=== PATIENT | male | born 1965 | race Caucasian/White ===

== ENCOUNTER 2018-09-03 14:40 | Emergency (ER) | payer BC, SELFPAY ==
[2018-09-03] VITALS (13 sets, daily range): BP systolic 137–154; BP diastolic 82–89; PULSE 80–100; RESP 16–25; TEMP 36.6–37.3; O2SAT 96–100
--- NOTE | 2018-09-03 14:56 | W.ED.GENAD ---
Discharge Plan Disposition Patient Disposition: HOME Condition: Stable Discharge Details Chief Complaint: Headache Clinical Impression: Headache Primary Care Provider: None,None ED Provider: Zaire Hernandez Home Meds and New Rx's Prescriptions: New ondansetron 4 mg tablet,disintegrating 4 mg PO QID PRN (Reason: nausea and vomiting) Qty: 30 RF: 0 No Action methylprednisolone 4 MG tablets,dose pack 4 mg PO DIRECTED Qty: 1 RF: 0 albuterol sulfate 8.5 GM HFA aerosol inhaler 8.5 gm Inhalation Q4H PRN PRNQty: 1 RF: 0 Discharge Instructions Instructions: General Headache (ED) Additional Instructions: follow up with your primary care provider within a week if you have pain you can take 1000mg tylenol and 600mg ibuprofen every 6 hours for pain as needed if you have severe worsening of pain, high fevers or persistent vomit return to the emergency department for reevaluation Medical Decision Making 53 yo male with hx of sarcoidosis comes in with chills that started last night and slowly worsening right sided headache along with n/v since then. Denies high fevers that he has checked, trauma or rashes. No new meds per pt or new foods. HAs no abdominal pain nor tenderness on exam. HAs no meningismus on exam and no focal neuro deficits. Suspect viral illness with resulting mild dehydration and subsequent headache, but will obtain ct to eval for possible sdh and also eval for influenza and monitor. Pain started slowly so doubt sah at this time pt remains stable, head ct negative and labs unremarkable. Pt states pain is gone and is tolerating PO, still no menignismus. I recommended LP to eval for possible ticket maker infectin and less likely sah but he declines at this time, has capacity to make his own decisions. My concern for these processes is low but advised I can't evaluate for them without the lp and he is declining at this time. He understands risks including /disability. He will f/u with his pcp as scheduled tomorrow and return precautions given Differential Diagnosis influenza, migraine, sah, ticket maker infection Imaging Data Radiologic Study: Attestation: I personally reviewed and interpreted this imaging study as follows: Imaging: CT Scan Radiologist's impression: no acute findings Lab Data Lab results reviewed: Yes I reviewed the patient's lab results. HPI General Mode of arrival: ambulatory. Date/Time Provider Initiated Documentation: 09/03/18 14:44. Limitations to Documentation: no limitations. Information obtained by: patient. History of Present Illness 53 year old M presents to the emergency department with the chief complaint of chills, described as moderate, Patient started experiencing this day(s) (1) and it has been constant. No relieving factors improve symptom(s), No exacerbating factors reported . Patient notes headaches. Patient did receive the following treatments prior to arrival, NSAID (3am) Related Data Home Medications Medication Instructions Recorded Confirmed albuterol sulfate 8.5 gm INHALATION Q4H PRN PRN #1 05/04/14 09/03/18 [email or web address] methylprednisolone 4 mg PO DIRECTED #1 unit 05/04/14 09/03/18 ondansetron 4 mg PO QID PRN #30 tab 09/03/18 Previous Rx's Medication Instructions Recorded albuterol sulfate 8.5 gm INHALATION Q4H PRN PRN #1 05/04/14 [email or web address] methylprednisolone 4 mg PO DIRECTED #1 unit 05/04/14 ondansetron 4 mg PO QID PRN #30 tab 09/03/18 Allergies Allergy/AdvReac Type Severity Reaction Status Date / Time pain medicine Allergy Mild Uncoded 09/03/18 14:52 General Stated Complaint: Headache KIYA: 3 Review of Systems Review of Systems All systems reviewed & are unremarkable except as noted in HPI and below Constitutional Denies fever(s) and Denies weakness ENT Denies change in voice Cardiovascular Denies chest pain and Denies dyspnea Respiratory Denies cough and Denies dyspnea Gastrointestinal Denies abdominal pain Genitourinary Denies dysuria Musculoskeletal Denies joint swelling Integumentary/Breasts Denies rash Neurologic Denies weakness [facility] Social History Smoking/Tobacco Use Status: Never Alcohol Intake: never Drug use: Never Do you feel safe at home: Yes Do you feel safe in your relationship?: Yes Exam Const General: no acute distress Orientation: alert HENMT Head: normal to inspection Ears: external ears normal General nose exam: external nose normal Mouth: moist mucous membranes Eyes General: appearance normal, both eyes and all related structures Neck Neck: normal visual inspection Resp Effort & Inspection: normal respiratory effort and able to speak in complete sentences Cardio Rate: regular rate Skin General skin exam: no rashes or lesions noted Neuro General: alert and oriented x3 Extrem General: normal to inspection Psych Mental Status: mental status grossly normal Course Vital Signs Temperature 37.3 C 09/03/18 14:45 Pulse 100 H 09/03/18 14:45 Respiratory Rate 16 09/03/18 14:45 Blood Pressure 143/82 H 09/03/18 14:45 Pulse Oximetry 98 09/03/18 14:45 Temperature 37.3 C 09/03/18 14:45 Temperature Source Skin 09/03/18 14:45 Pulse 100 H 09/03/18 14:45 Respiratory Rate 16 09/03/18 14:45 Respiratory Effort Non-Labored 09/03/18 14:50 Blood Pressure 143/82 H 09/03/18 14:45 Pulse Oximetry 98 09/03/18 14:45 Oxygen Delivery Method Room Air 09/03/18 14:45 Oxygen Flow Rate 0 09/03/18 14:45 Pain Level 8 09/03/18 14:45
--- NOTE | 2018-09-03 15:00 | ED.GENADUL_ITS ---
Discharge Plan Disposition Patient Disposition: HOME Condition: Stable Discharge Details Chief Complaint: Headache Clinical Impression: Headache Primary Care Provider: None,None ED Provider: Zaire Hernandez Home Meds and New Rx's Prescriptions: New ondansetron 4 mg tablet,disintegrating 4 mg PO QID PRN (Reason: nausea and vomiting) Qty: 30 RF: 0 No Action methylprednisolone 4 MG tablets,dose pack 4 mg PO DIRECTED Qty: 1 RF: 0 albuterol sulfate 8.5 GM HFA aerosol inhaler 8.5 gm Inhalation Q4H PRN PRNQty: 1 RF: 0 Discharge Instructions Instructions: General Headache (ED) Additional Instructions: follow up with your primary care provider within a week if you have pain you can take 1000mg tylenol and 600mg ibuprofen every 6 hours for pain as needed if you have severe worsening of pain, high fevers or persistent vomit return to the emergency department for reevaluation Medical Decision Making 53 yo male with hx of sarcoidosis comes in with chills that started last night and slowly worsening right sided headache along with n/v since then. Denies high fevers that he has checked, trauma or rashes. No new meds per pt or new foods. HAs no abdominal pain nor tenderness on exam. HAs no meningismus on exam and no focal neuro deficits. Suspect viral illness with resulting mild dehydration and subsequent headache, but will obtain ct to eval for possible sdh and also eval for influenza and monitor. Pain started slowly so doubt sah at this time pt remains stable, head ct negative and labs unremarkable. Pt states pain is gone and is tolerating PO, still no menignismus. I recommended LP to eval for possible state historical society director infectin and less likely sah but he declines at this time, has capacity to make his own decisions. My concern for these processes is low but advised I can't evaluate for them without the lp and he is declining at this time. He understands risks including /disability. He will f/u with his pcp as scheduled tomorrow and return precautions given Differential Diagnosis influenza, migraine, sah, state historical society director infection Imaging Data Radiologic Study: Attestation: I personally reviewed and interpreted this imaging study as follows: Imaging: CT Scan Radiologist's impression: no acute findings Lab Data Lab results reviewed: Yes I reviewed the patient's lab results. HPI General Mode of arrival: ambulatory . Date/Time Provider Initiated Documentation: 09/03/18 14:44 . Limitations to Documentation: no limitations . Information obtained by: patient . History of Present Illness 53 year old M presents to the emergency department with the chief complaint of chills, described as moderate, Patient started experiencing this day(s) (1) and it has been constant. No relieving factors improve symptom(s), No exacerbating factors reported . Patient notes headaches. Patient did receive the following treatments prior to arrival, NSAID (3am) Related Data Home Medications Medication Instructions Recorded Confirmed albuterol sulfate 8.5 gm INHALATION Q4H PRN PRN #1 05/04/14 09/03/18 [email or web address] methylprednisolone 4 mg PO DIRECTED #1 unit 05/04/14 09/03/18 ondansetron 4 mg PO QID PRN #30 tab 09/03/18 Previous Rx's Medication Instructions Recorded albuterol sulfate 8.5 gm INHALATION Q4H PRN PRN #1 05/04/14 [email or web address] methylprednisolone 4 mg PO DIRECTED #1 unit 05/04/14 ondansetron 4 mg PO QID PRN #30 tab 09/03/18 Allergies Allergy/AdvReac Type Severity Reaction Status Date / Time pain medicine Allergy Mild Uncoded 09/03/18 14:52 General Stated Complaint: Headache KIYA: 3 Review of Systems Review of Systems All systems reviewed & are unremarkable except as noted in HPI and below Constitutional Denies fever(s) and Denies weakness ENT Denies change in voice Cardiovascular Denies chest pain and Denies dyspnea Respiratory Denies cough and Denies dyspnea Gastrointestinal Denies abdominal pain Genitourinary Denies dysuria Musculoskeletal Denies joint swelling Integumentary/Breasts Denies rash Neurologic Denies weakness [facility] Social History Smoking/Tobacco Use Status: Never Alcohol Intake: never Drug use: Never Do you feel safe at home: Yes Do you feel safe in your relationship?: Yes Exam Const General: no acute distress Orientation: alert HENMT Head: normal to inspection Ears: external ears normal General nose exam: external nose normal Mouth: moist mucous membranes Eyes General: appearance normal, both eyes and all related structures Neck Neck: normal visual inspection Resp Effort & Inspection: normal respiratory effort and able to speak in complete sentences Cardio Rate: regular rate Skin General skin exam: no rashes or lesions noted Neuro General: alert and oriented x3 Extrem General: normal to inspection Psych Mental Status: mental status grossly normal Course Vital Signs Temperature 37.3 C 09/03/18 14:45 Pulse 100 H 09/03/18 14:45 Respiratory Rate 16 09/03/18 14:45 Blood Pressure 143/82 H 09/03/18 14:45 Pulse Oximetry 98 09/03/18 14:45 Temperature 37.3 C 09/03/18 14:45 Temperature Source Skin 09/03/18 14:45 Pulse 100 H 09/03/18 14:45 Respiratory Rate 16 09/03/18 14:45 Respiratory Effort Non-Labored 09/03/18 14:50 Blood Pressure 143/82 H 09/03/18 14:45 Pulse Oximetry 98 09/03/18 14:45 Oxygen Delivery Method Room Air 09/03/18 14:45 Oxygen Flow Rate 0 09/03/18 14:45 Pain Level 8 09/03/18 14:45
[2018-09-03] MEDS: Prochlorperazine 10 MG/2 ML VIAL IVP (15:14)
[2018-09-03] MEDS: Normal Saline 1,000 ML 1000 ML IV (15:14)
[2018-09-03 15:19] LABS: Abs Immature Grans 0.02 k/cumm (0.0-0.09); Absolute Basophil Count 0.01 k/cumm (0.0-0.2); Absolute Lymphocyte Count 0.47 k/cumm (1.2-3.4); Absolute Monocyte Count 0.43 k/cumm (0.11-0.7); Absolute Neutrophil Count 6.69 k/cumm (1.2-6.7); Basophils % 0.1; HCT 39.5 % (40.0-50.0); HGB 13.5 g/dL (13.5-17.5); Immature Grans % 0.3; Lymphocytes % 6.2; Mean Corp. HGB Concentration 34.2 g/dL (32.0-36.0); Mean Corpuscular Hemoglobin 32.1 pg (27.0-33.0); Mean Corpuscular Volume 93.8 fL (80-95); Mean Platelet Volume 10.8 fL (8.0-11.0); Monocytes % 5.6; Neutrophils % 87.8; Platelet Count 113 x1000/uL (130-400); RBC 4.21 m/cumm (4.50-6.00); RBC Distribution Width 12.7 % (11.8-14.1); White Blood Cell Count 7.62 k/cumm (4.4-10.8)
[2018-09-03 15:34] LABS: PTT Activated 24.1 sec (21.0-31.4); Prothrombin Time 10.2 sec (9.3-11.0)
[2018-09-03 15:38] LABS: ALT 33 U/L (12-78); AST 25 U/L (15-37); Albumin 3.7 g/dL (3.4-5.0); Alkaline Phosphatase 86 U/L (46-116); Anion Gap 7.7 mmol/L (3-11); BUN 12 mg/dL (7-18); Bilirubin, Total 0.9 mg/dL (0.2-1.0); CO2 27.3 mmol/L (21.0-32.0); CREATININE 0.82 mg/dL (0.70-1.30); Calcium 8.5 mg/dL (8.5-10.1); Chloride 99 mmol/L (98-107); Glucose 119 mg/dL (70-100); Potassium 3.7 mmol/L (3.5-5.1); Sodium 134 mmol/L (136-145)
--- NOTE | 2018-09-03 15:40 | DI.CT_ITS ---
SYMPTOMS/DIAGNOSIS: RIGHT-SIDED HEADACHES CT BRAIN: Noncontrast examination was performed. Comparison MRI is 01/25/13. There is a normal tejeda-white matter differentiation. The ventricles are intact. The basilar cisterns are patent. No acute intracranial hemorrhage, midline shift or mass effect is identified. No fluid levels are seen in the visualized paranasal sinuses. The mastoid air cells are well pneumatized. The calvarium is intact. IMPRESSION: No acute intracranial process. The findings were discussed with the Emergency Department on the date of the examination.
[2018-09-03] MEDS: Acetaminophen 500 MG TAB 1000 MG PO (15:50)
[2018-09-03] MEDS: Ketorolac 30 MG/ML VIAL (15:58)
== END 2018-09-03 16:58 | disposition home or self-care (01) ==
LOC: ER 17:24
PROVIDERS: Emergency Provider Emergency Medicine
DX: R51 Headache (principal); R11.2 Nausea with vomiting, unspecified
CPT/HCPCS: 36415; 80053; 87449; 96361; 96374; 96375; 99284; 70450; 85025; 85610; 85730; J0780; J1885

== ENCOUNTER 2018-12-04 04:33 | Emergency (ER) | payer BC, SELFPAY ==
[2018-12-04 04:36] VITALS: BP 134/87; PULSE 61; RESP 16; TEMP 36.1; O2SAT 99
--- NOTE | 2018-12-04 04:51 | ED.GENADUL_ITS ---
Discharge Plan Disposition Patient Disposition: HOME Condition: Good Discharge Details Chief Complaint: Vascular Clinical Impression: Superficial bruising of lower leg Primary Care Provider: None,None ED Provider: Hilton Gale Home Meds and New Rx's Prescriptions: No Action methylprednisolone 4 MG tablets,dose pack 4 mg PO DIRECTED Qty: 1 RF: 0 albuterol sulfate 8.5 GM HFA aerosol inhaler 8.5 gm Inhalation Q4H PRN PRNQty: 1 RF: 0 ondansetron 4 mg tablet,disintegrating 4 mg PO QID PRN (Reason: nausea and vomiting) Qty: 30 RF: 0 Discharge Instructions Instructions: Contusion in Adults (ED) Additional Instructions: Please take 10 mg of your home Eliquis soon as you get home. Please return this afternoon for your ultrasound. You will be contacted for an appointment time. After your appointment please come back to the ER for reassessment. This may just be swelling from your daily work, and if there is no evidence of blood clots, you will not need to continue the Eliquis. It should get better with time on its own peer please continue to use your compression stockings. If you notice any worsening of your symptoms, or any new symptoms such as vomiting, diarrhea, fever, chills, shortness of breath, chest pain, numbness, weakness, or fainting , please return immediately to the emergency department for reevaluation. Please follow up with your primary care provider as soon as possible for reassessment and reevaluation. As always, it was a pleasure participating in your medical care today. Medical Decision Making This is a pleasant 53-year-old male with a past medical history of blood clot in the past for which he takes Eliquis, but no longer currently does. He presents today for evaluation of small amount of bruising over the right medial ankle, and the right medial calf. It is been present for the last 1 to 2 days. He did fall and hit his leg 2 to 3 months ago, but no recent trauma. He presents today out of concern for potential clot. He denies any other systemic symptoms of chest pain shortness of breath and calf tenderness. No significant swelling of the lower extremity. Exam demonstrates no signs of coolness, pallor, or evidence of vascular ischemia. Signs and symptoms appear consistent with mild bruising for unknown reason, no other bruising on the rest of the body, no historical suggestion of thrombocytopenia. I feel the likelihood of a clot is low, however with the patient's history I do feel that further evaluation is reasonable. Fortunately no ultrasound is available currently at 5 AM, so we will schedule outpatient ultrasonography for the patient. He works from 7 AM until 3 PM. Is requesting that the appointment be after this time. He does have home Eliquis from his previous blood clot, and is requesting to take his home medications instead of medications here. Did discuss with him the need to take 10 mg at this time as soon as he returns. Patient will be contacted for outpatient ultrasound. If ultrasound is negative I suspect his bruising is most likely secondary to trauma and work, and requires no other significant acute intervention otherwise. We discussed red flags which to return as well as the plan. I have extensively reviewed the treatment plan and discharge instructions with the patient. I have addressed all patient concerns at this time. The patient was made aware of what symptoms to monitor for that would warrant a return to the emergency department. Discussed the plan with the patient, they demonstrate verbal understanding and agreement with our assessment and plan at this time. Contact numbers: Cell phone number [phone] Workplace/shot number [phone] [facility] General Date/Time Provider Initiated Documentation: 12/04/18 04:39 . HPI Narrative: This is a 53-year-old male with a past medical history of sarcoidosis currently on prednisone as well as a blood clot in the past secondary to fall, and trauma for which he used to take Eliquis. He presents today for evaluation of bruising. Patient states that in July he fell and hit his leg, he had some swelling and bruising at that time but this resolved on its own with compression stockings. However over the last 2 days he has noticed some mild bruising on the medial aspect of the ankle and proximal calf. He denies any recent trauma, or pain. He denies any chest pain or shortness of breath. He denies any pain with ambulation. He denies any recent trauma. He denies any other complaints at this time. He does use home compression stockings. He denies any numbness tingling or weakness. No other complaints at this time. He states that he is coming to get checked out to be safe. Related Data Home Medications Medication Instructions Recorded Confirmed albuterol sulfate 8.5 gm INHALATION Q4H PRN PRN #1 05/04/14 09/03/18 [email or web address] methylprednisolone 4 mg PO DIRECTED #1 unit 05/04/14 09/03/18 ondansetron 4 mg PO QID PRN #30 tab 09/03/18 Previous Rx's Medication Instructions Recorded albuterol sulfate 8.5 gm INHALATION Q4H PRN PRN #1 05/04/14 [email or web address] methylprednisolone 4 mg PO DIRECTED #1 unit 05/04/14 ondansetron 4 mg PO QID PRN #30 tab 09/03/18 Allergies Allergy/AdvReac Type Severity Reaction Status Date / Time pain medicine Allergy Mild Uncoded 12/04/18 04:36 General Stated Complaint: Vascular KIYA: 4 Review of Systems Review of Systems All systems reviewed & are unremarkable except as noted in HPI and below PFSH Social History Smoking/Tobacco Use Status: Never Alcohol Intake: never Drug use: Never Do you feel safe at home: Yes Do you feel safe in your relationship?: Yes Exam Narrative Exam Narrative: 1.Const: Well-nourished, Well-developed, appearing stated age 2.Eyes: PERRL, no conjunctival injection, and symmetrical lids. 3.ENT: Atraumatic external nose and ears. Moist MM. Neck: Symmetric, trachea midline, No thyromegaly. 4.CVS: +S1/S2, No murmurs or gallops. Peripheral pulses 2+ and equal in all extremities. Brisk capillary refill in all extremities. 5.RESP: Unlabored respiratory effort. Clear to auscultation bilaterally. No wheezes rales or rhonchi 6.GI: Soft, Nontender/Nondistended, No hepatosplenomegaly. No guarding or rebound. 7.MSK: Normocephalic/Atraumatic, Extremities w/o deformity or ttp No cyanosis or clubbing, Normal movement of all extremities. Patient has +5 out of 5 strength in the lower extremities in dorsiflexion and plantarflexion, knee flexion and extension, hip flexion and extension. There is +2 over 2 dorsalis pedis pulses bilaterally. There is normal sensation to the skin with light touch at the foot knee and hip. Minimal petechial bruising over the medial aspect of the ankle on the right, as well as the medial aspect of the proximal calf. This is very minimal in nature. No significant calf tenderness, negative Homans sign. Dorsalis pedis and posterior tibial pulse +2 bilaterally. Brisk capillary refill. Normal sensation throughout both hands feet and legs. 8.Skin: Warm, Dry. Minimal petechial bruising over the right medial ankle and the right medial calf. No evidence of palpable purpura, bruising anywhere else, or other significant abnormality. 9.Neuro: client representative II-XII grossly intact. Sensation grossly intact, no focal neurologic deficits. 10.Psych: (AAO) x3. Appropriate mood and affect Course Vital Signs Temperature 36.1 C L 12/04/18 04:36 Pulse 61 12/04/18 04:36 Respiratory Rate 16 12/04/18 04:36 Blood Pressure 134/87 12/04/18 04:36 Pulse Oximetry 99 12/04/18 04:36 Temperature 36.1 C L 12/04/18 04:36 Temperature Source Temporal Artery Scan 12/04/18 04:36 Pulse 61 12/04/18 04:36 Respiratory Rate 16 12/04/18 04:36 Respiratory Effort 12/04/18 04:36 Blood Pressure 134/87 12/04/18 04:36 Pulse Oximetry 99 12/04/18 04:36 Oxygen Delivery Method Room Air 12/04/18 04:36 Oxygen Flow Rate 0 12/04/18 04:36 Pain Level 0 12/04/18 04:36
== END 2018-12-04 04:59 | disposition home or self-care (01) ==
PROVIDERS: Emergency Provider Student in an Organized Health Care Education/Training Program
DX: S90.01XA Contusion of right ankle, initial encounter (principal); X58.XXXA Exposure to other specified factors, initial encounter; Z79.01 Long term (current) use of anticoagulants
CPT/HCPCS: 99283

== ENCOUNTER 2018-12-04 07:34 | Outpatient (CLI) | payer BC, SELFPAY ==
--- NOTE | 2018-12-04 15:32 | DI.US_ITS ---
SYMPTOMS/DIAGNOSIS: SWELLING, H/O DVT, SUPERFICIAL BRUISE, ? DVT DUPLEX VENOUS ULTRASOUND, RIGHT LOWER EXTREMITY: Duplex evaluation of the deep venous system was performed according to the usual protocol. The deep veins are freely compressible throughout to the level of the popliteal veins. There is normal Doppler flow visible throughout and there is excellent flow augmentation with manual calf compression. CONCLUSION: No evidence of deep venous thrombosis.
== END 2018-12-04 07:54 ==
PROVIDERS: Visit Provider Student in an Organized Health Care Education/Training Program
DX: R22.41 Localized swelling, mass and lump, right lower limb (principal); S80.11XA Contusion of right lower leg, initial encounter
CPT/HCPCS: 93971

== ENCOUNTER 2018-12-04 15:35 | Emergency (ER) | payer BC, SELFPAY ==
[2018-12-04 15:38] VITALS: BP 128/88; PULSE 68; RESP 16; TEMP 36.8; O2SAT 97
--- NOTE | 2018-12-04 15:54 | W.ED.GENAD ---
Discharge Plan Disposition Patient Disposition: HOME Condition: Good Discharge Details Chief Complaint: Recheck Clinical Impression: Bruising Primary Care Provider: Stacia,Local ED Provider: Chelsy Ramos Home Meds and New Rx's Prescriptions: Continued methylprednisolone 4 MG tablets,dose pack 4 mg PO DIRECTED Qty: 1 RF: 0 albuterol sulfate 8.5 GM HFA aerosol inhaler 8.5 gm Inhalation Q4H PRN PRNQty: 1 RF: 0 ondansetron 4 mg tablet,disintegrating 4 mg PO QID PRN (Reason: nausea and vomiting) Qty: 30 RF: 0 Discharge Instructions Instructions: Contusion in Adults (ED) Additional Instructions: Your ultrasound does not show any evidence of clot today. This is likely superficial bruising. Please elevate and ice extremity. If you develop increased pain, increased swelling, develop fevers/chills, shortness of breath, chest pain or other new/worsening symptoms please seek care urgently once again. Please follow up with primary care provider next week for reevaluation. Discharge Data Discharge Date/Time-TO BE ENTERED AT DEPARTURE: 12/04/18 16:14 Medical Decision Making Patient is a 53 tyear old male with hx of RLE DVT 2 years ago after trauma. Was initially anticoagulated on Eliquis, stopped this last fall at advisement of vascular surgeon. Patient was seen here early this morning and outpatient ultrasound was ordered to evaluate for possible DVT. On exam, patient appears comfortable. He has scant amount of bruising to the right medial calf. No posterior calf pain. No palpable cord. Vascular exam is normal with no evidence of ischemia. He has no pain on palpation, negative Homans sign. DUPLEX VENOUS ULTRASOUND, RIGHT LOWER EXTREMITY: Duplex evaluation of the deep venous system was performed according to the usual protocol. The deep veins are freely compressible throughout to the level of the popliteal veins. There is normal Doppler flow visible throughout and there is excellent flow augmentation with manual calf compression. CONCLUSION: No evidence of deep venous thrombosis. Discussed these findings with the patient. Encourage elevation. Advised that this is likely superficial bruising. This is not been worsening over time, advised to continue to monitor this closely. We discussed new/worsening symptoms when to seek care urgently once again. Patient will discontinue his Eliquis. We will follow-up with primary care next week for reevaluation. All his questions and concerns were addressed and is agreement with plan. HPI General Mode of arrival: ambulatory. Date/Time Provider Initiated Documentation: 12/04/18 15:52. Limitations to Documentation: no limitations. Information obtained by: patient and RN notes reviewed. History of Present Illness 53 year old M presents to the emergency department with the chief complaint of US results concerning possible RLE DVT, described as mild (denies any pain), Patient started experiencing this day(s) (2) No relieving factors improve symptom(s), No exacerbating factors reported . Patient notes no other symptoms.. Patient did receive the following treatments prior to arrival, none Related Data Home Medications Medication Instructions Recorded Confirmed albuterol sulfate 8.5 gm INHALATION Q4H PRN PRN #1 05/04/14 12/04/18 [email or web address] methylprednisolone 4 mg PO DIRECTED #1 unit 05/04/14 12/04/18 ondansetron 4 mg PO QID PRN #30 tab 09/03/18 12/04/18 Previous Rx's Medication Instructions Recorded albuterol sulfate 8.5 gm INHALATION Q4H PRN PRN #1 05/04/14 [email or web address] methylprednisolone 4 mg PO DIRECTED #1 unit 05/04/14 ondansetron 4 mg PO QID PRN #30 tab 09/03/18 Allergies Allergy/AdvReac Type Severity Reaction Status Date / Time pain medicine Allergy Mild Uncoded 12/04/18 15:40 General Stated Complaint: Recheck KIYA: 4 Review of Systems Constitutional Reports as per HPI, Denies chills, Denies fever(s), Denies headache(s) and Denies weakness ENT Denies headache(s) Cardiovascular Reports as per HPI, Denies chest pain, Denies chest pain with activity, Denies dyspnea and Denies dyspnea on exertion Respiratory Reports as per HPI, Denies cough, Denies dyspnea and Denies dyspnea on exertion Musculoskeletal Reports as per HPI and Denies tingling Integumentary/Breasts Reports as per HPI and Reports unusual bruising (bruising to RLE, unknown source) Neurologic Reports as per HPI, Denies headache(s), Denies tingling, Denies paresthesias and Denies weakness [facility] Social History Smoking/Tobacco Use Status: Never Alcohol Intake: never Drug use: Never Do you feel safe at home: Yes Do you feel safe in your relationship?: Yes Exam Const General: cooperative, healthy appearing, comfortable, no acute distress, well developed and well groomed Nutritional Appearance: average body habitus and well nourished Orientation: alert and awake Resp Effort & Inspection: normal respiratory effort, able to speak in complete sentences and no respiratory distress Cardio Rate: regular rate Rhythm: regular rhythm Skin General skin exam: ecchymosis (scant amount of bruising to RLE) Neuro General: alert and awake Cognition: normal cognition Speech: speech normal Gait: normal gait Motor: muscle tone normal throughout Sensory Exam: no sensory deficits noted Extrem Right lower extremity: normal to inspection, full ROM, normal capillary refill, no joint enlargement, knee, lower leg Details: no edema and ecchymosis; inspection abnormal (eccymosis as below, this is very faint), no erythema, no tenderness, no localized swelling, no palpable cords, no abrasions, no lacerations, no deformity and no unusual warmth, ankle Details: normal to inspection and foot Details: normal capillary refill, normal to inspection and vascular exam Details: dorsalis pedis pulse present and posterior tibial pulse present; no tenderness; no cyanosis and no edema Ankle/foot/toe images: 1. small area of faint bruising 2. Psych Appearance: grossly normal and well kempt Mental Status: mental status grossly normal Speech and Movement: speech and movement normal Course Vital Signs Temperature 36.8 C 12/04/18 15:38 Pulse 68 12/04/18 15:38 Respiratory Rate 16 12/04/18 15:38 Blood Pressure 128/88 12/04/18 15:38 Pulse Oximetry 97 12/04/18 15:38 Temperature 36.8 C 12/04/18 15:38 Temperature Source Skin 12/04/18 15:38 Pulse 68 12/04/18 15:38 Respiratory Rate 16 12/04/18 15:38 Respiratory Effort Non-Labored 12/04/18 15:38 Blood Pressure 128/88 12/04/18 15:38 Blood Pressure Position Supine 12/04/18 15:38 Pulse Oximetry 97 12/04/18 15:38 Oxygen Delivery Method Room Air 12/04/18 15:38 Oxygen Flow Rate 0 12/04/18 15:38 Pain Level 0 12/04/18 15:38
--- NOTE | 2018-12-04 16:01 | ED.GENADUL_ITS ---
Discharge Plan Disposition Patient Disposition: HOME Condition: Good Discharge Details Chief Complaint: Recheck Clinical Impression: Bruising Primary Care Provider: Stacia,Local ED Provider: Chelsy Ramos Home Meds and New Rx's Prescriptions: Continued methylprednisolone 4 MG tablets,dose pack 4 mg PO DIRECTED Qty: 1 RF: 0 albuterol sulfate 8.5 GM HFA aerosol inhaler 8.5 gm Inhalation Q4H PRN PRNQty: 1 RF: 0 ondansetron 4 mg tablet,disintegrating 4 mg PO QID PRN (Reason: nausea and vomiting) Qty: 30 RF: 0 Discharge Instructions Instructions: Contusion in Adults (ED) Additional Instructions: Your ultrasound does not show any evidence of clot today. This is likely superficial bruising. Please elevate and ice extremity. If you develop increased pain, increased swelling, develop fevers/chills, shortness of breath, chest pain or other new/worsening symptoms please seek care urgently once again. Please follow up with primary care provider next week for reevaluation. Discharge Data Discharge Date/Time-TO BE ENTERED AT DEPARTURE: 12/04/18 16:14 Medical Decision Making Patient is a 53 tyear old male with hx of RLE DVT 2 years ago after trauma. Was initially anticoagulated on Eliquis, stopped this last fall at advisement of vascular surgeon. Patient was seen here early this morning and outpatient ultrasound was ordered to evaluate for possible DVT. On exam, patient appears comfortable. He has scant amount of bruising to the right medial calf. No posterior calf pain. No palpable cord. Vascular exam is normal with no evidence of ischemia. He has no pain on palpation, negative Homans sign. DUPLEX VENOUS ULTRASOUND, RIGHT LOWER EXTREMITY: Duplex evaluation of the deep venous system was performed according to the usual protocol. The deep veins are freely compressible throughout to the level of the popliteal veins. There is normal Doppler flow visible throughout and there is excellent flow augmentation with manual calf compression. CONCLUSION: No evidence of deep venous thrombosis. Discussed these findings with the patient. Encourage elevation. Advised that this is likely superficial bruising. This is not been worsening over time, advised to continue to monitor this closely. We discussed new/worsening symptoms when to seek care urgently once again. Patient will discontinue his E liquis. We will follow-up with primary care next week for reevaluation. All his questions and concerns were addressed and is agreement with plan. HPI General Mode of arrival: ambulatory . Date/Time Provider Initiated Documentation: 12/04/18 15:52 . Limitations to Documentation: no limitations . Information obtained by: patient and RN notes reviewed . History of Present Illness 53 year old M presents to the emergency department with the chief complaint of US results concerning possible RLE DVT, described as mild (denies any pain), Patient started experiencing this day(s) (2) No relieving factors improve symptom(s), No exacerbating factors reported . Patient notes no o ther symptoms.. Patient did receive the following treatments prior to arrival, none Related Data Home Medications Medication Instructions Recorded Confirmed albuterol sulfate 8.5 gm INHALATION Q4H PRN PRN #1 05/04/14 12/04/18 [email or web address] methylprednisolone 4 mg PO DIRECTED #1 unit 05/04/14 12/04/18 ondansetron 4 mg PO QID PRN #30 tab 09/03/18 12/04/18 Previous Rx's Medication Instructions Recorded albuterol sulfate 8.5 gm INHALATION Q4H PRN PRN #1 05/04/14 [email or web address] methylprednisolone 4 mg PO DIRECTED #1 unit 05/04/14 ondansetron 4 mg PO QID PRN #30 tab 09/03/18 Allergies Allergy/AdvReac Type Severity Reaction Status Date / Time pain medicine Allergy Mild Uncoded 12/04/18 15:40 General Stated Complaint: Recheck KIYA: 4 Review of Systems Constitutional Reports as per HPI, Denies chills, Denies fever(s), Denies headache(s) and Denies weakness ENT Denies headache(s) Cardiovascular Reports as per HPI, Denies chest pain, Denies chest pain with activity, Denies dyspnea and Denies dyspnea on exertion Respiratory Reports as per HPI, Denies cough, Denies dyspnea and Denies dyspnea on exertion Musculoskeletal Reports as per HPI and Denies tingling Integumentary/Breasts Reports as per HPI and Reports unusual bruising (bruising to RLE, unknown source) Neurologic Reports as per HPI, Denies headache(s), Denies tingling, Denies paresthesias and Denies weakness [facility] Social History Smoking/Tobacco Use Status: Never Alcohol Intake: never Drug use: Never Do you feel safe at home: Yes Do you feel safe in your relationship?: Yes Exam Const General: cooperative, healthy appearing, comfortable, no acute distress, well developed and well groomed Nutritional Appearance: average body habitus and well nourished Orientation: alert and awake Resp Effort & Inspection: normal respiratory effort, able to speak in complete sentences and no respiratory distress Cardio Rate: regular rate Rhythm: regular rhythm Skin General skin exam: ecchymosis (scant amount of bruising to RLE) Neuro General: alert and awake Cognition: normal cognition Speech: speech normal Gait: normal gait Motor: muscle tone normal throughout Sensory Exam: no sensory deficits noted Extrem Right lower extremity: normal to inspection, full ROM, normal capillary refill, no joint enlargement, knee, lower leg Details: no edema and ecchymosis; inspection abnormal (eccymosis as below, this is very faint), no erythema, no tenderness, no localized swelling, no palpable cords, no abrasions, no lacerations, no deformity and no unusual warmth, ankle Details: normal to inspection and foot Details: normal capillary refill, normal to inspection and vascular exam Details: dorsalis pedis pulse present and posterior tibial pulse present; no tenderness; no cyanosis and no edema Ankle/foot/toe images: 1. small area of faint bruising 2. Psych Appearance: grossly normal and well kempt Mental Status: mental status grossly normal Speech and Movement: speech and movement normal Course Vital Signs Temperature 36.8 C 12/04/18 15:38 Pulse 68 12/04/18 15:38 Respiratory Rate 16 12/04/18 15:38 Blood Pressure 128/88 12/04/18 15:38 Pulse Oximetry 97 12/04/18 15:38 Temperature 36.8 C 12/04/18 15:38 Temperature Source Skin 12/04/18 15:38 Pulse 68 12/04/18 15:38 Respiratory Rate 16 12/04/18 15:38 Respiratory Effort Non-Labored 12/04/18 15:38 Blood Pressure 128/88 12/04/18 15:38 Blood Pressure Position Supine 12/04/18 15:38 Pulse Oximetry 97 12/04/18 15:38 Oxygen Delivery Method Room Air 12/04/18 15:38 Oxygen Flow Rate 0 12/04/18 15:38 Pain Level 0 12/04/18 15:38
== END 2018-12-04 16:14 | disposition home or self-care (01) ==
LOC: ER 16:17
PROVIDERS: Emergency Provider Physician Assistant
DX: S80.11XA Contusion of right lower leg, initial encounter (principal); X58.XXXA Exposure to other specified factors, initial encounter
CPT/HCPCS: 99282

== ENCOUNTER 2019-04-26 08:47 | Outpatient (CLI) | payer BC, SELFPAY ==
--- NOTE | 2019-04-26 11:57 | DI.US_ITS ---
EXAM: US LOWER EXTREMITY VENOUS LT CLINICAL HISTORY: MODERATE PAIN, SWELLING LLE, S/P FALL 04/22, R60.9, M79.605 TECHNIQUE: Ultrasound performed using standard protocol. COMPARISON: US lower extremity venous RT from 12/04/2018 FINDINGS: Duplex venous ultrasound left lower extremity was performed according to the usual protocol. There i s visible thrombus extending from the proximal femoral vein through the level of the posterior tibial veins. Minimal flow is visualized on Doppler evaluation through the femoral vein consistent with to muna occlusion. Collateral vessels are noted in the distal thigh. No superficial thrombus seen. No Robledo's cyst seen. IMPRESSION: Examination is positive for nearly occlusive DVT from the level of the proximal femoral vein to the p osterior tibial veins on the left.
== END 2019-04-26 09:07 ==
PROVIDERS: Visit Provider Family Medicine
DX: M79.662 Pain in left lower leg (principal); R22.42 Localized swelling, mass and lump, left lower limb; R60.0 Localized edema; I82.412 Acute embolism and thrombosis of left femoral vein; I82.442 Acute embolism and thrombosis of left tibial vein
CPT/HCPCS: 93971

== ENCOUNTER 2019-04-26 12:14 | Emergency (ER) | payer BC, SELFPAY ==
[2019-04-26 12:17] VITALS: BP 142/90; PULSE 86; RESP 19; TEMP 36.5; O2SAT 97
[2019-04-26 12:32] VITALS: RESP 16
--- NOTE | 2019-04-26 12:34 | W.ED.GENAD ---
Discharge Plan Disposition Patient Disposition: HOME Condition: Improving Discharge Details Chief Complaint: Vascular Clinical Impression: Acute deep vein thrombosis (DVT) of left lower extremity Primary Care Provider: Ena Yung ED Provider: Mike Story Home Meds and New Rx's Prescriptions: New Eliquis 5 mg tablet 5 mg PO BID Qty: 60 RF: 0 Continued albuterol sulfate 8.5 GM HFA aerosol inhaler 8.5 gm Inhalation Q4H PRN PRNQty: 1 RF: 0 methylprednisolone 4 MG tablets,dose pack 4 mg PO DIRECTED RF: 0 aspirin 325 mg Tablet 325 mg PO DAILY RF: 0 Discharge Instructions Additional Instructions: Please follow-up with Dr. Yung in 7 days time for recheck. Call for an appointment. I recommend you decrease aspirin from a full dose to 2 baby aspirin per day. Take Eliquis as prescribed 10 mg twice a day for 1 week, then 5 mg twice a day. Return if develop chest pain, difficulty breathing, or any other acute concerns. Medical Decision Making 54-year-old male presents on referral from outpatient radiology. He has had previous right leg DVT, noticed 1 week of left lower extremity swelling without pain and without chest pain or shortness of breath. His primary care physician from [place] ordered an outpatient ultrasound today. Examination is positive for nearly occlusive DVT from the level of the proximal femoral vein to the posterior tibial veins on the left. His vital signs are normal, oxygenation normal, his exam is reassuring other than the left lower extremity edema. I will restart him on Eliquis. He is to follow-up with Dr. Yung, his primary care physician for recheck next week. He understands homecare as well as return precautions. HPI General Mode of arrival: ambulatory. Date/Time Provider Initiated Documentation: 04/26/19 12:27. Limitations to Documentation: no limitations. Information obtained by: patient and family. History of Present Illness 54 year old M presents to the emergency department with the chief complaint of L leg clot bu USN this morning., described as mild, Quality is described as dull and constant, and is localized to the left and lower extremity. Patient reports no radiation. Patient started experiencing this day(s) and it has been constant. No relieving factors improve symptom(s), No exacerbating factors reported . Patient notes denies chest pain, shortness of breath and syncope. Patient did receive the following treatments prior to arrival, none Related Data Home Medications Medication Instructions Recorded Confirmed albuterol sulfate 8.5 gm INHALATION Q4H PRN PRN #1 05/04/14 04/26/19 [email or web address] apixaban [Eliquis] 5 mg PO BID #60 tab 04/26/19 aspirin 325 mg PO DAILY 04/26/19 04/26/19 methylprednisolone 4 mg PO DIRECTED 04/26/19 04/26/19 Previous Rx's Medication Instructions Recorded albuterol sulfate 8.5 gm INHALATION Q4H PRN PRN #1 05/04/14 [email or web address] apixaban [Eliquis] 5 mg PO BID #60 tab 04/26/19 Allergies Allergy/AdvReac Type Severity Reaction Status Date / Time acetaminophen [From Percocet] Allergy Unverified 04/26/19 12:22 oxycodone [From Percocet] Allergy Unverified 04/26/19 12:22 pain medicine Allergy Mild Uncoded 12/04/18 15:40 General Stated Complaint: Vascular KIYA: 3 Review of Systems Narrative: History of previous DVT, formally on Eliquis, no current anticoagulation. Denies chest pain or shortness of breath. 6 systems reviewed and otherwise negative [facility] Social History Smoking/Tobacco Use Status: Never Alcohol Intake: never Drug use: Never Do you feel safe at home: Yes Do you feel safe in your relationship?: Yes Exam Narrative Exam Narrative: GEN: awake, alert, oriented 3. Pleasant, well groomed, interactive. HEAD: Normocephalic, atraumatic ENT: Mucous membranes moist, oropharynx unremarkable, External ear exam unremarkable EYES: PERRL, EOMI EXT: Full ROM, 2-3+ edema left lower extremity. 1+ DP present Neuro: Grossly normal neurologic exam, conversant, interactive. Psych: Speech fluent, thoughts congruent, affect normal Course Vital Signs Vital signs: Vital Signs Temperature 36.5 C 04/26/19 12:17 Pulse 86 04/26/19 12:17 Respiratory Rate 04/26/19 12:17 Blood Pressure 142/90 H 04/26/19 12:17 Pulse Oximetry 97 04/26/19 12:17 Temperature 36.5 C 04/26/19 12:17 Temperature Source Skin 04/26/19 12:17 Pulse 86 04/26/19 12:17 Respiratory Rate 16 04/26/19 12:32 Respiratory Effort 04/26/19 12:32 Respiratory Depth Normal 04/26/19 12:32 Respiratory Pattern Normal 04/26/19 12:32 Blood Pressure 142/90 H 04/26/19 12:17 Blood Pressure Position Sitting 04/26/19 12:17 Pulse Oximetry 97 04/26/19 12:17 Oxygen Delivery Method Room Air 04/26/19 12:17 Oxygen Flow Rate 0 04/26/19 12:17 Pain Level 5 04/26/19 12:17
== END 2019-04-26 12:48 | disposition home or self-care (01) ==
LOC: ER 12:38
PROVIDERS: Emergency Provider Emergency Medicine; PCP Family Medicine
DX: I82.492 Acute embolism and thrombosis of other specified deep vein of left lower extremity (principal); Z86.718 Personal history of other venous thrombosis and embolism
CPT/HCPCS: 99283

== ENCOUNTER 2020-06-08 02:17 | Outpatient (CLI) | payer BC, SELFPAY ==
[2020-06-09 21:52] LABS: COVID-19 RT-PCR Result NEGATIVE (Negative)
== END 2020-06-08 02:37 ==
PROVIDERS: PCP Family Medicine; Visit Provider Internal Medicine Cardiovascular Disease
DX: Z11.52 Encounter for screening for COVID-19 (principal); Z01.810 Encounter for preprocedural cardiovascular examination
CPT/HCPCS: U0003

== ENCOUNTER 2020-06-11 01:03 | Outpatient (CLI) | payer BC, SELFPAY ==
--- NOTE | 2020-06-11 08:00 | ETT_ITS ---
APPROVED REPORT Exam: Exercise Treadmill Patient Location: Out-Patient Room/Bed: Stress Nurse: Marysol Abreu, RN, Mahad Shah RN Ordering Provider:NE WIGGINS, Contact Number: [phone] BMI: 41.80 Baseline Rhythm: Sinus Bradycardia Indications: dizziness, palpitations Medical History Medical History: DVT, Asthma Cardiac Medications: ASA, Eliquis, albuterol Allergies: acetaminophen, oxycodone, pain medications Cardiac Risk Factors: family hx, asthma, obesity Previous Cardiac Procedures: None. Pretest Chest Pain Characteristics: No chest pain Exercise History: Sedentary Physical Disabilities: Back pain Lung Sounds: Clear to auscultation Heart Sounds: Regular Stress Test Details Test: Exercise stress testing was performed using a Mitchel protocol. Rest Stress HR Resting HR Supine: 56 bpm Max Heart Rate (APMHR): 167 bpm Resting HR Standin bpm Target HR (85% APMHR): 141 bpm Max HR Achieved: 188 bpm % of APMHR: 112 Recovery HR: 179 bpm HR response to stress: Abnormal HR response to stress Comment: Converted to AFib with RVR in recovery BP Resting BP Supine: 140/78 mmHg Resting BP Standin/80 mmHg Max BP: 200/88 mmHg Recovery BP: 140/82 mmHg BP response to stress: Normal blood pressure response to stress. ECG Resting ECG: Sinus Bradycardia Ectopy: None Stress ECG: Sinus Tachycardia ST Change: Downsloping ST depression, Horizontal ST depression Lead(s): V2, V3, V4, V5 Stage: [address] Deviation: 1 mm Arrhythmia: None, None, APC's Comment: Inverted T wave noted in V2, V3, V4, V5 Recovery ECG: Atrial Fibrillation with Rapid Ventricular Rate Recovery ST Change: No significant ST segment changes noted Recovery Arrhythmia: PAC, PVCs Patient to ER: 850 Reason Why: Pt converted to AFib with RVR in recovery period. Remained in this period 20 minutes in r ecovery. Consulted associate director finance Grayson, recommendation pt be transferred to ED for further mgmt. Pt asy mptomatic. Clinical Reason for Termination: Fatigue Stress Symptoms: None. Exercise duration: 7 min48 sec Highest Stage Reached: Stage 3: 3.4 mph at 14% grade. Exercise capacity: 9.84 METs Rate Pressure Product: 96169 Stress ECG Conclusion 1. Resting electrocardiogram showed early transition, borderline voltage for left ventricular hypertr ophy 2. Patient exercised on the Mitchel protocol for 7 minutes 48 seconds and achieved a workload of 9.84 M ETS. 3. Accelerated heart rate response to exercise. There were no symptoms to suggest angina 4. Patient developed atrial fibrillation in recovery. With heart rates ranging from 1 50-1 79, there was diffuse [address] depression consistent with myocardial ischemia 5. Due to persistence of atrial fibrillation, the patient was transferred to the emergency room for f urther evaluation and treatment
== END 2020-06-11 01:23 ==
PROVIDERS: PCP Family Medicine; Visit Provider Internal Medicine Cardiovascular Disease
DX: R42 Dizziness and giddiness (principal); R00.2 Palpitations; J45.909 Unspecified asthma, uncomplicated; Z82.49 Family history of ischemic heart disease and other diseases of the circulatory system
CPT/HCPCS: 93017

== ENCOUNTER 2020-06-11 08:53 | Emergency (ER) | payer BC, SELFPAY ==
[2020-06-11] VITALS (53 sets, daily range): BP systolic 94–136; BP diastolic 58–99; PULSE 54–169; RESP 13–23; TEMP 36.4; O2SAT 93–100
--- NOTE | 2020-06-11 08:45 | RT.EKG_ITS ---
APPROVED REPORT Exam: Resting ECG Patient Location: E HR:176 bpm ECG Measurements Heart Rate 176 AXIS KS 72 P 50 QRSd 82 QRS 31 QT 281 T 137 QTc [address] elevation secondary to high heart rate Nonspecific T abnormalities, lateral leads..
--- NOTE | 2020-06-11 09:01 | W.ED.GENAD ---
Discharge Plan Disposition Patient Disposition: HOME Condition: Improving Discharge Details Clinical Impression: Atrial fibrillation Primary Care Provider: Ena Yung ED Provider: Mike Story Home Meds and New Rx's Prescriptions: New metoprolol tartrate 25 mg tablet 25 mg PO DAILY Qty: 30 RF: 0 Continued albuterol sulfate 8.5 GM HFA aerosol inhaler 8.5 gm Inhalation Q4H PRN PRNQty: 1 RF: 0 aspirin 325 mg Tablet 325 mg PO DAILY RF: 0 Eliquis 5 mg tablet 5 mg PO BID Qty: 60 RF: 0 prednisone 5 mg tablet 5 mg PO BID RF: 0 ascorbic acid (vitamin C) [Vitamin C] 500 mg Capsule, Extended Release 500 mg PO DAILY RF: 0 montelukast 10 mg tablet 10 mg PO DAILY RF: 0 Advair HFA 230-21 mcg/actuation HFA aerosol inhaler 1 inh INHALATION TID RF: 0 Discharge Instructions Instructions: A-fib (Atrial Fibrillation) (ED) Additional Instructions: Please make efforts to decrease your daily intake of caffeinated soda. We will ask care management to arrange a follow-up for you in cardiology clinic. Continue your regular medications including Eliquis. Please begin taking metoprolol once daily. Return to the ER for chest pain, difficulty breathing, racing heart or palpitations, or any other acute concerns. Stand Alone Forms: Work Release Discharge Data Discharge Date/Time-TO BE ENTERED AT DEPARTURE: 06/11/20 11:45 Medical Decision Making 55-year-old male presents from outpatient stress test. He reported to have a had a normal stress test, then well resting afterwards developed rapid atrial fibrillation. He was placed in a wheelchair and brought to the ER. He arrives sitting feels slightly short of breath but denies chest pain. States had similar episodes to this 2 times in the past that seem to resolve on their own and for which he was undergoing stress test today. He arrives in rapid atrial fibrillation with a rate approximately 170. Placed on a phototypesetting equipment monitor. Labs obtained, patient given fluid bolus, started on diltiazem for urgent rate control. Labs with unremarkable CBC, normal electrolytes, negative troponin, BNP of 66. Discussed with Dr. Galicia, we discussed consideration of synchronized cardioversion given the patient's observed development of atrial fibrillation after stress testing today. Dr. Galicia confirmed the stress test did not reveal evidence of atherosclerotic coronary vascular disease. We discussed placing the patient on metoprolol to prevent recurrence of rapid atrial fibrillation. After approximately 60 minutes following the diltiazem infusion and fluids, the patient converted to a normal sinus rhythm. HPI General Mode of arrival: wheelchair. Date/Time Provider Initiated Documentation: 06/11/20 08:53. Limitations to Documentation: no limitations. Information obtained by: patient. History of Present Illness 55 year old M presents to the emergency department with the chief complaint of Rapid A. fib after stress test, described as moderate, Quality is described as dull, and is localized to the chest. Patient reports no radiation. Patient started experiencing this minute(s) and it has been constant. No relieving factors improve symptom(s), No exacerbating factors reported . Patient notes shortness of breath; denies chest pain. Patient did receive the following treatments prior to arrival, none Related Data Home Medications Medication Instructions Recorded Confirmed albuterol sulfate 8.5 gm INHALATION Q4H PRN PRN #1 05/04/14 06/11/20 [email or web address] Eliquis 5 mg PO BID #60 tab 04/26/19 06/11/20 aspirin 325 mg PO DAILY 04/26/19 06/11/20 Advair HFA 1 inh INHALATION TID 06/11/20 06/11/20 ascorbic acid (vitamin C) [Vitamin 500 mg PO DAILY 06/11/20 06/11/20 C] metoprolol tartrate 25 mg PO DAILY #30 tab 06/11/20 montelukast 10 mg PO DAILY 06/11/20 06/11/20 prednisone 5 mg PO BID 06/11/20 06/11/20 Previous Rx's Medication Instructions Recorded albuterol sulfate 8.5 gm INHALATION Q4H PRN PRN #1 05/04/14 [email or web address].ad Eliquis 5 mg PO BID #60 tab 04/26/19 metoprolol tartrate 25 mg PO DAILY #30 tab 06/11/20 Allergies Allergy/AdvReac Type Severity Reaction Status Date / Time acetaminophen [From Percocet] Allergy Unverified 06/11/20 11:04 oxycodone [From Percocet] Allergy Unverified 06/11/20 11:04 pain medicine Allergy Mild Uncoded 06/11/20 11:04 General Stated Complaint: GenMedical KIYA: 2 Review of Systems Narrative: On Eliquis for DVT. Last p.o. intake 5 AM. Denies chest pain. Feels heart racing. Feels short of breath and weak. No syncope. Reported to have uneventful stress test. Recently well. 8 systems reviewed and otherwise negative COUNT INCLUDES THE [facility] Social History Smoking/Tobacco Use Status: Never Smoking risk assessment performed?: Yes Alcohol Intake: never Drug use: Never Do you feel safe at home: Yes Do you feel safe in your relationship?: Yes Exam Narrative Exam Narrative: GEN: awake, alert, oriented 3. Pleasant, well groomed, interactive. HEAD: Normocephalic, atraumatic ENT: Mucous membranes moist, oropharynx unremarkable, External ear exam unremarkable EYES: PERRL, EOMI NECK: Full ROM, no [place], no menigismus CHEST/RESP: Nontender, clear to auscultation bilateral, no wheeze/rhonchi/rales CARDIOVASCULAR: Irregularly irregular, tachycardic, no murmur, rub felisa. 2+ Rad pulse bilateral ABDOMEN: Soft, nontender, no mass. +Bowel sounds EXT: Full ROM, no edema, no rash Neuro: Grossly normal neurologic exam, conversant, interactive. Psych: Speech fluent, thoughts congruent, affect normal Course Vital Signs Vital signs: Vital Signs Temperature 36.4 C L 06/11/20 08:56 Pulse 162 H 06/11/20 08:56 Respiratory Rate 18 06/11/20 08:56 Pulse Oximetry 100 06/11/20 08:56 Temperature 36.4 C L 06/11/20 08:56 Temperature Source Temporal Artery Scan 06/11/20 08:56 Pulse 162 H 06/11/20 08:56 Respiratory Rate 18 06/11/20 08:56 Blood Pressure Position Supine 06/11/20 08:56 Pulse Oximetry 100 06/11/20 08:56 Oxygen Delivery Method Room Air 06/11/20 08:56 Oxygen Flow Rate 0 06/11/20 08:56 Pain Level 0 06/11/20 08:56 Critical Care Time Critical Care Time Critical Care Time: Yes Total Critical Care Time: 25 Attestation: Bedside management of cardiac dysrhythmia, review of records, discussion with financial reporting consultant
[2020-06-11] MEDS: dilTIAZem 25 MG/5 ML VIAL 15 MG IVP (09:06)
[2020-06-11] MEDS: Normal Saline 1,000 ML 1000 ML IV (09:08)
[2020-06-11] MEDS: dilTIAZem 125 MG in Normal Saline 100 ML 20 MG IV (09:09)
[2020-06-11 09:10] LABS: Abs Immature Grans 0.06 10^3/uL (0.0-0.06); Absolute Basophil Count 0.03 10^3/uL (0.0-0.2); Absolute Eosinophil Count 0.07 10^3/uL (0.0-0.7); Absolute Lymphocyte Count 1.26 10^3/uL (1.2-3.4); Absolute Monocyte Count 0.47 10^3/uL (0.1-0.8); Absolute Neutrophil Count 5.94 10^3/uL (1.2-6.7); Basophils % 0.4; Eosinophils % 0.9; HGB 13.8 g/dL (13.5-17.5); Immature Grans % 0.8; Lymphocytes % 16.1; MCH 31.4 pg (27.0-33.0); MCHC 33.7 % (32.0-36.0); MCV 93.2 fL (80-95); MPV 10.5 fL (8.0-11.0); Neutrophils % 75.8; Nucleated RBC 0 %; Platelet Count 190 10^3/uL (130-400); RDW 12.1 % (11.8-14.1); RDW-SD 41.7 fL; WBC 7.83 10^3/uL (4.4-10.8)
--- NOTE | 2020-06-11 09:15 | DI.RAD_ITS ---
EXAM: XR PORTABLE CHEST AP CLINICAL HISTORY: Rapid afib, palp TECHNIQUE: COMPARISON: CR CHEST 2 VIEWS PA,LAT from 05/04/2014 FINDINGS: The heart appears mildly enlarged although this may be due in part to AP technique. There is redistr ibution of pulmonary vascular flow into the upper lobe vessels and there is slight prominence of pulm onary interstitial markings in comparison with prior examinations. No gross pleural effusion on this frontal film. IMPRESSION: Findings suggesting pulmonary venous hypertension/incipient CHF. Please correlate clinically. RADIATION DOSE DELIVERED: Total DLP
[2020-06-11 09:27] LABS: ALT 50 U/L (16-63); AST 28 U/L (15-37); Albumin 3.9 g/dL (3.4-5.0); Alkaline Phosphatase 112 U/L (46-116); Anion Gap 11.9 mmol/L (3-11); BUN 12 mg/dL (7-18); Bilirubin, Total 0.6 mg/dL (0.2-1.0); CO2 24.1 mmol/L (21.0-32.0); CREATININE 1.02 mg/dL (0.70-1.30); Calcium 9.9 mg/dL (8.5-10.1); Chloride 103 mmol/L (98-107); Glucose 176 mg/dL (74-106); Magnesium 1.8 mg/dL (1.8-2.4); Potassium 3.9 mmol/L (3.5-5.1); Sodium 139 mmol/L (136-145); Total Protein 7.6 g/dL (6.4-8.2)
[2020-06-11 09:31] LABS: NT-proBNP 66 pg/mL (<300)
[2020-06-11 09:33] LABS: Troponin I < 0.05 ng/mL (<0.06)
[2020-06-11] MEDS: dilTIAZem 25 MG/5 ML VIAL 10 MG IVP (09:47)
--- NOTE | 2020-06-11 10:00 | RT.EKG_ITS ---
APPROVED REPORT Exam: Resting ECG Patient Location: E HR:54 bpm ECG Measurements Heart Rate 54 AXIS NH 154 P 39 QRSd 99 QRS 18 QT 408 T 36 QTc 388 Conclusion Sinus bradycardia. No st elevation
[2020-06-11] MEDS: Metoprolol 25 MG TAB PO (10:56)
== END 2020-06-11 11:45 | disposition home or self-care (01) ==
PROVIDERS: Emergency Provider Emergency Medicine; PCP Family Medicine
DX: I48.91 Unspecified atrial fibrillation (principal); R06.02 Shortness of breath; Z79.01 Long term (current) use of anticoagulants
CPT/HCPCS: 36415; 80053; 93005; 96361; 96365; 96375; 99285; 71045; 83735; 83880; 84484; 85025; 85610; 85730; 93010; 99284

== ENCOUNTER 2021-08-09 00:30 | Outpatient (CLI) | payer BC, SELFPAY ==
--- NOTE | 2021-08-09 | DI.RAD_ITS ---
Exam(s) XR KNEE LT 2V AP,LAT XR PELVIS AP XR FEMUR LT EXAM: XR KNEE LT 2V AP,LAT CLINICAL HISTORY: ACUTE LT KNEE PAIN, M25.562, ? AVASCULAR NECROSIS. TECHNIQUE: 2D digital imaging was performed. COMPARISON: CR XR PELVIS AP from 08/09/2021 CR XR FEMUR LT from 08/09/2021 FINDINGS: BONES: No acute fracture is present. No bony destructive lesion is seen. No evidence of avascular ne crosis. Enthesophytes iliac wings. JOINTS: No dislocation.. No joint effusion is seen. Mild acetabular spurring. Minimal degenerative changes medial femoral tibial joint the knee. SOFT TISSUE: Normal. IMPRESSION: Mild degenerative changes of the left hip and knee. No evidence of avascular necrosis. DATA REPOSITORY: RADIATION DOSE DELIVERED:
== END 2021-08-09 00:50 ==
LOC: DI 00:30
PROVIDERS: PCP Family Medicine; Visit Provider Physician Assistant
DX: M25.562 Pain in left knee (principal); M79.652 Pain in left thigh; M16.12 Unilateral primary osteoarthritis, left hip; M17.12 Unilateral primary osteoarthritis, left knee; M79.662 Pain in left lower leg; Z79.52 Long term (current) use of systemic steroids
CPT/HCPCS: 73552; 72170; 73560

== ENCOUNTER 2022-10-27 13:18 | Outpatient (CLI) | payer SELFPAY ==
--- NOTE | 2022-10-27 | DI.RAD_ITS ---
Exam(s) XR CHEST 2V PA LATERAL EXAM: XR CHEST 2V PA LATERAL CLINICAL HISTORY: SOB, R06.02, CHRONIC OBSTRUCTIVE PULMONARY DISEASE, J44.9, WORSENED DYSPNEA. TECHNIQUE: 2D digital imaging was performed. COMPARISON: CR XR PORTABLE CHEST AP from 06/11/2020 FINDINGS: 2 views: Heart size is normal. The mediastinum is not widened. No new left lung findings. Increased density right infrahilar region, probably subtle infiltrate. N o pleural. No pulmonary. IMPRESSION: Mild right-sided infiltrate. Follow-up to resolution recommended.No pleural effusions. DATA REPOSITORY: RADIATION DOSE DELIVERED:
== END 2022-10-27 13:38 ==
LOC: DI 14:35
PROVIDERS: PCP Family Medicine; Visit Provider Internal Medicine Pulmonary Disease
DX: R06.02 Shortness of breath (principal); J44.9 Chronic obstructive pulmonary disease, unspecified; R91.8 Other nonspecific abnormal finding of lung field
CPT/HCPCS: 71046

== ENCOUNTER 2022-11-02 12:21 | Outpatient (CLI) | payer BC, SELFPAY ==
[2022-11-02 16:57] LABS: Hemoglobin A1C 12.8 % (<5.7)
[2022-11-02 17:19] LABS: ALT 115 U/L (16-63); AST 43 U/L (15-37); Albumin 3.3 g/dL (3.4-5.0); Alkaline Phosphatase 118 U/L (46-116); Anion Gap 11.5 mmol/L (3-11); BUN 20 mg/dL (7-18); Bilirubin, Total 0.5 mg/dL (0.2-1.0); CO2 26.5 mmol/L (21.0-32.0); Calcium 9.1 mg/dL (8.5-10.1); Chloride 99 mmol/L (98-107); Estimated GFR 88.88 (mL/min/1.73m2); Glucose 462 mg/dL (74-106); Potassium 4.3 mmol/L (3.5-5.1); Sodium 137 mmol/L (136-145); TSH (W/Ref FT4) 0.24 uIU/mL (0.36-3.74); Total Protein 6.5 g/dL (6.4-8.2)
[2022-11-02 18:00] LABS: FREE T4 0.96 ng/dL (0.76-1.46)
== END 2022-11-02 12:22 ==
LOC: LBO 01-24 12:22
PROVIDERS: PCP Family Medicine; Visit Provider Family Medicine
DX: E11.9 Type 2 diabetes mellitus without complications (principal)
CPT/HCPCS: 36415; 80053; 83036; 84439; 84443

== ENCOUNTER 2022-11-28 17:52 | Outpatient (CLI) | payer BC, SELFPAY ==
[2022-11-28 15:48] LABS: NT-proBNP 228 pg/mL (<300)
== END 2022-11-28 17:53 | disposition home or self-care (01) ==
LOC: LBO 17:54
PROVIDERS: PCP Family Medicine; Visit Provider Family Medicine
DX: R60.0 Localized edema (principal)
CPT/HCPCS: 36415; 83880

== ENCOUNTER 2023-01-31 16:15 | Outpatient (CLI) | payer BC, SELFPAY ==
[2023-01-31 16:58] LABS: Hemoglobin A1C 8.6 % (<5.7)
[2023-01-31 18:29] LABS: ALT 41 U/L (16-63); AST 15 U/L (15-37); Albumin 3.8 g/dL (3.4-5.0); Alkaline Phosphatase 84 U/L (46-116); Anion Gap 10.3 mmol/L (3-11); BUN 20 mg/dL (7-18); Bilirubin, Total 0.4 mg/dL (0.2-1.0); CO2 27.7 mmol/L (21.0-32.0); Calcium 9.3 mg/dL (8.5-10.1); Chloride 103 mmol/L (98-107); Estimated GFR 88.33 (mL/min/1.73m2); Glucose 231 mg/dL (74-106); Potassium 3.5 mmol/L (3.5-5.1); Sodium 141 mmol/L (136-145); Total Protein 6.6 g/dL (6.4-8.2)
== END 2023-01-31 16:16 | disposition home or self-care (01) ==
LOC: LBO 16:18
PROVIDERS: PCP Family Medicine; Visit Provider Family Medicine
DX: Z00.00 Encounter for general adult medical examination without abnormal findings (principal); E11.9 Type 2 diabetes mellitus without complications
CPT/HCPCS: 36415; 80053; 83036

== ENCOUNTER 2023-05-24 22:35 | Outpatient (CLI) | payer BC, SELFPAY ==
[2023-05-24 13:58] LABS: TSH (W/Ref FT4) 0.52 uIU/mL (0.36-3.74)
[2023-05-24 14:01] LABS: Hemoglobin A1C 7.9 % (<5.7)
== END 2023-05-24 22:36 | disposition home or self-care (01) ==
LOC: LBO 22:38
PROVIDERS: PCP Family Medicine; Visit Provider Family Medicine
DX: E11.69 Type 2 diabetes mellitus with other specified complication (principal); R94.6 Abnormal results of thyroid function studies; R79.89 Other specified abnormal findings of blood chemistry
CPT/HCPCS: 36415; 83036; 84443

== ENCOUNTER 2023-07-12 10:01 | Emergency (ER) | payer BC, SELFPAY ==
[2023-07-12 10:08] VITALS: BP 155/135; PULSE 68; RESP 17; TEMP 37.1; O2SAT 99
--- NOTE | 2023-07-12 10:15 | DI.CT_ITS ---
Exam(s) CT HEAD CERV SPINE FACIAL WO EXAM: CT HEAD CERV SPINE FACIAL WO CLINICAL HISTORY: fall, on anticoagulation, right periorbital swelli. TECHNIQUE: Imaging Protocol: Axial computed tomography images with coronal and sagittal reformatted images were created and reviewed COMPARISON: CT CT HEAD WO from 09/03/2018 FINDINGS: CT Head: Ventricles and Extra axial spaces: Normal in size and morphology for the patient's age. Hemorrhage: None. Cerebral parenchyma: No evidence of acute hemorrhage or acute infarct. Midline shift: None. Brainstem/Cerebellum: Normal. Calvarium: Normal. Visualized Paranasal sinuses/Mastoids: Clear. Soft Tissues: Right frontal scalp hematoma. Swelling extends down to region of right orbit. CT Face: Facial Bones: No fracture is noted in facial bones. Sinuses and Mastoids: Unremarkable. Globes, extraocular muscles, optic nerves and retrobulbar fat: Normal. Upper aerodigestive tract: Normal. Mandible and bilateral temporomandibular joints: Normal. Soft tissues: Small knee right frontal scalp hematoma with swelling dental the level of right orbit. CT Cervical Spine: Bones: No acute fracture or subluxation. Mild degenerative changes. Soft Tissues: Unremarkable. Lung Apices: Clear. IMPRESSION: 1. No acute intracranial process. Right frontal scalp hematoma extending down to level of right orbi t. 2. No acute fracture or subluxation in the cervical spine. 3. No acute facial fracture. RADIATION DOSE DELIVERED: 2,588.58mGy.cm Total DLP DATA REPOSITORY: All CT scans at this facility are submitted to the National Radiology Data Registry (NRDR) Dose Index Registry (DIR) with the [employer] ([employer]). RADIATION OPTIMIZATION: All CT scans at this facility use at least one of these dose optimization te chniques: automated exposure control; mA and/or kV adjustment per patient size (includes targeted exa ms where dose is matched to clinical indication); or iterative reconstruction.
--- NOTE | 2023-07-12 10:19 | ED.GENADUL_ITS ---
HPI General Mode of arrival: ambulatory . Date/Time Provider Initiated Documentation: 07/12/23 10:03 . Limitations to Documentation: no limitations . Information obtained by: patient . History of Present Illness 58 year old M presents to the emergency department with the chief complaint of fall, right periorbital swelling, described as mild, Quality is described as aching, and is localized to the face. Patient started experiencing this hour(s) (4) and it has been constant. No relieving factors improve symptom(s), No exacerbating factors reported . Patient notes no other symptoms.. Patient did receive the following treatments prior to arrival, none Related Data Home Medications Medication Instructions Recorded Confirmed albuterol sulfate 90 mcg/actuation 8.5 gm inhalation Q4H PRN PRN ##1 05/04/14 07/12/23 aerosol inhaler apixaban 5 mg tablet (Eliquis) 5 mg PO BID #60 tabs 04/26/19 07/12/23 aspirin 325 mg tablet 325 mg PO DAILY 04/26/19 07/12/23 ascorbic acid (vitamin C) 500 mg 500 mg PO DAILY 06/11/20 07/12/23 capsule,extended release (Vitamin C) fluticasone propionate 230 1 inh inhalation TID 06/11/20 07/12/23 mcg-salmeterol 21 mcg/actuation HFA inhaler (Advair HFA) metoprolol tartrate 25 mg tablet 25 mg PO DAILY #30 tabs 06/11/20 07/12/23 montelukast 10 mg tablet 10 mg PO DAILY 06/11/20 07/12/23 prednisone 5 mg tablet 5 mg PO BID 06/11/20 07/12/23 atorvastatin 40 mg tablet 40 mg PO DAILY 07/12/23 07/12/23 furosemide 20 mg tablet 60 mg PO DAILY 07/12/23 07/12/23 metformin 500 mg tablet 1,000 mg PO BID 07/12/23 07/12/23 semaglutide 2 mg/dose (8 mg/3 mL) 2 mg subcut .weekly 07/12/23 07/12/23 subcutaneous pen injector (Ozempic) Previous Rx's Medication Instructions Recorded albuterol sulfate 90 mcg/actuation 8.5 gm inhalation Q4H PRN PRN ##1 05/04/14 aerosol inhaler apixaban 5 mg tablet (Eliquis) 5 mg PO BID #60 tabs 04/26/19 metoprolol tartrate 25 mg tablet 25 mg PO DAILY #30 tabs 06/11/20 Allergies Allergy/AdvReac Type Severity Reaction Status Date / Time acetaminophen [From Percocet] Allergy Unverified 06/11/20 11:04 oxycodone [From Percocet] Allergy Unverified 06/11/20 11:04 pain medicine Allergy Mild Uncoded 06/11/20 11:04 General Stated Complaint: Fall/Non TraumaCriteria KIYA: 3 Review of Systems All systems reviewed & are unremarkable except as noted in HPI and below Constitutional Constitutional: Denies chills, Denies fever(s) and Denies weakness Eyes Eyes: Denies loss of vision Cardiovascular Cardiovascular: Denies chest pain and Denies dyspnea Respiratory Respiratory: Denies cough and Denies dyspnea Gastrointestinal Gastrointestinal: Denies abdominal pain, Denies nausea and Denies vomiting Musculoskeletal Musculoskeletal: Denies joint swelling Neurologic Neurologic: Denies loss of vision and Denies weakness Exam Const General: no acute distress Orientation: alert [facility] Head: no palpable skull fracture and normocephalic Ears: external ears normal General nose exam: external nose normal Mouth: moist mucous membranes Eyes General: appearance normal, both eyes and all related structures Neck Neck: normal visual inspection Resp Effort & Inspection: normal respiratory effort and able to speak in complete sentences Cardio Rate: regular rate Skin General skin exam: no rashes or lesions noted Neuro General: patient alert and patient oriented x3 Extrem General: normal to inspection Psych Mental Status: mental status grossly normal Course Vital Signs Vital signs: Vital Signs Temperature 37.1 C 07/12/23 10:08 Pulse 68 07/12/23 10:08 Respiratory Rate 17 07/12/23 10:08 Blood Pressure 155/135 H 07/12/23 10:08 Pulse Oximetry 99 07/12/23 10:08 Temperature 37.1 C 07/12/23 10:08 Temperature Source Temporal Artery Scan 07/12/23 10:08 Pulse 68 07/12/23 10:08 Respiratory Rate 17 07/12/23 10:08 Respiratory Effort Normal, Non-Labored 07/12/23 10:11 Blood Pressure 155/135 H 07/12/23 10:08 Blood Pressure Position Sitting 07/12/23 10:08 Pulse Oximetry 99 07/12/23 10:08 Oxygen Delivery Method Room Air 07/12/23 10:08 Oxygen Flow Rate 0 07/12/23 10:08 Pain Level 5 07/12/23 10:08 Medical Decision Making 58-year-old male with a history of atrial fibrillation on Eliquis, who comes in after a fall. He states this morning he was walking into the shop when he slipped on ice and fell forward hitting his face on the ground, denies any loss of consciousness and states he felt well prior to this. Denies any chest pain difficulty breathing. He is ambulating with a normal gait on arrival, has a right periorbital hematoma, pupils are equal and reactive to light and extraocular eye movements are normal with no pain in the eye per the patient. No change of vision. No midline C, T, L-spine tenderness, no chest or abdomen tenderness. Given his age denies on anticoagulation with a facial hematoma will obtain CT head, CT facial bones, CT C-spine. Imaging negative, patient stable no new complaints. Given negative CT feel he stable for discharge, advised to follow-up with primary care if not improving within a week, return precautions given Differential Diagnosis Differential Diagnosis: Concussion, TBI, facial hematoma Medical Records Medical records reviewed: Yes I reviewed the patient's medical records. Imaging Data Radiologic Study: Attestation: I personally reviewed and interpreted this imaging study as follows: Imaging: CT Scan Radiologist's impression: IMPRESSION: 1. No acute intracranial process. Right frontal scalp hematoma extending down to level of right orbit. 2. No acute fracture or subluxation in the cervical spine. 3. No acute facial fracture. Quality:SDAL Health Related Social Needs: No Data to Display [facility] All Active Problems (Updated 07/12/23 @ 10:56 by Zaire Hernandez MD) Blunt head trauma (Acute) Social History Smoking/Tobacco Use Status: Never Smoking risk assessment performed?: Yes Alcohol Intake: never Drug use: Never Substance use type: does not use Housing: apartment Do you feel safe at home: Yes Do you feel safe in your relationship?: Yes Discharge Plan Disposition Patient Disposition: Home Condition: Stable Discharge Details Clinical Impression: Blunt head trauma Primary Care Provider: Ena Yung ED Provider: Zaire Hernandez Home Meds and New Rx's Prescriptions: Continued albuterol sulfate 8.5 GM HFA aerosol inhaler 8.5 gm Inhalation Q4H PRN PRNQty: 1 0RF aspirin 325 mg Tablet 325 mg PO DAILY Eliquis 5 mg tablet 5 mg PO BID Qty: 60 0RF Rx Instructions: Please begin 10 mg p.o. twice daily for 7 days, then 5 mg p.o. twice daily prednisone 5 mg tablet 5 mg PO BID Patient Comments: TK 1 T PO BID ascorbic acid (vitamin C) [Vitamin C] 500 mg Capsule, Extended Release 500 mg PO DAILY montelukast 10 mg tablet 10 mg PO DAILY fluticasone propion-salmeterol [Advair HFA] 230-21 mcg/actuation HFA aerosol inhaler 1 inh INHALATION TID metoprolol tartrate 25 mg tablet 25 mg PO DAILY Qty: 30 0RF furosemide 20 mg tablet 60 mg PO DAILY atorvastatin 40 mg tablet 40 mg PO DAILY Ozempic 2 mg/dose (8 mg/3 mL) pen injector 2 mg SUBCUT .weekly metformin 500 mg tablet 1,000 mg PO BID Discharge Instructions Additional Instructions: Your CAT scan did not show any concerning findings at this time If not improving in 1 to 2 weeks follow-up with your primary care provider Can try putting ice on the swelling to help go down faster If you feel more ill, have severe worsening head pain, or new symptoms such as chest pain return to the emergency department Stand Alone Forms: Work Release
[2023-07-12 11:02] VITALS: BP 125/70; PULSE 72; RESP 17; TEMP 36.8; O2SAT 99
== END 2023-07-12 11:03 | disposition home or self-care (01) ==
LOC: ER 11:13
PROVIDERS: Emergency Provider Emergency Medicine; PCP Family Medicine
DX: S09.8XXA Other specified injuries of head, initial encounter (principal); W00.0XXA Fall on same level due to ice and snow, initial encounter
CPT/HCPCS: 99281; 70450; 70486; 72125; 99282